=== PATIENT | female | born 1955 | race African-American/Black ===

== ENCOUNTER → 2017-03-26 | Outpatient (CLI) | payer BC ==
[~2017-03-26] MED LIST: LOTREL 5/10 MG1 CAP PO; NABUMETONE PO; ZYRTEC PO
--- NOTE | ~2017-03-26 | MY29 ---
[facility] A Service of [facility] / [facility] RADIOLOGY TEXT RESULTS PATIENT: LIZ HINES LOCATION: [facility] : 53 UNIT #: [id number] AGE: [address]: Jeremías Ovalle MD SEX: F ORDER DR: [id number] [facility] [address] [place], [place] [address] [id number] O MR#: [id number] Acc #: [id number] NAME: LIZ HINES : 1955 SEX: F STUDY DATE/TIME: 03/26/2017 11:08 UNIT: [facility] ROOM: STUDY DESCRIPTION: MY NAOMI SCREENING W/ CAD BILAT Attending Physician: Jeremías Ovalle M.D. Referring Physician: Jeremías Ovalle M.D. Ordering Physician: Jeremías Ovalle M.D. Primary Care Physician: Jeremías Ovalle M.D. MEDICAL IMAGING REPORT This report is preliminary unless electronic signature is present EXAM Digital screening mammogram, 03/26/2017, [facility]. HISTORY 61-year-old woman no risk elevation. Annual screen. COMPARISON Mammograms date to 03/11/2006 with most recent comparison 01/12/2016. FINDINGS Digital imaging of each breast was completed utilizing a two-view examination of each breast in craniocaudal and mediolateral-oblique projections. Review and interpretation of digital mammograms include a second review in conjunction with FDA-approved CAD device. There is a normal parenchymal presentation bilaterally consistent with the patient's age. There are no breast masses imaged and no parenchymal asymmetry is visualized. There are no suspicious microcalcifications and I see no focal architectural disturbance. IMPRESSION Negative screening digital mammogram. One-year followup recommended. Patients over the age of 40 are entered into a reminder system with target due date for the next mammogram. A result letter will also be sent to the patient. BIRADS: 1 Negative Dictated by... Narinder Ly M.D. [facility] A Service [facility] RADIOLOGY TEXT RESULTS PATIENT: LIZ HINES LOCATION: [facility] : 53 UNIT #: [id number] AGE: [address]: Jeremías Ovalle MD SEX: F ORDER DR: THIS IS AN ELECTRONICALLY VERIFIED REPORT Narinder Ly M.D. at 03/26/2017 12:46 PM Ned TD: 03/26/2017 11:53 JOB #: [id number] MEDICAL IMAGING REPORT Page 1 of 1 COPY
== END | disposition home or self-care (01) ==
LOC: CWCC 10:55
DX: Z12.31 Encounter for screening mammogram for malignant neoplasm of breast (principal)
CPT/HCPCS: G0202